=== PATIENT | female | born 1975 ===

== ENCOUNTER 2016-09-19 09:13 | Inpatient (IN) | payer OTHER ==
[2016-09-19] MEDS ORDERED: Sodium Chloride 0.9% 1,000 ML IV ONE (09:36)
[2016-09-19] MEDS ORDERED: Sodium Chloride 0.9% 1,000 ML ONE (09:45)
--- NOTE | 2016-09-19 09:50 | C.PDOC ---
History Of Present Illness 41 y/o female, whose PMHx includes hypertension and anemia, presents to the ED complaining of weakness and palpitations "for a while," worse for one day. She reports that her most recent menstrual period was "heavy," which is normal for her. Patient admits to history of blood transfusions, most recently over a year ago. Also notes Dr. Shankar is her PMD. Patient denies chest pain, shortness of breath, abdominal pain, vomiting, fever, chills, dizziness, headache, or other complaints. Time Seen by Provider: 09/19/16 09:23 Chief Complaint (Nursing): Flu-like Symptoms History Per: Patient History/Exam Limitations: no limitations Onset/Duration Of Symptoms: Days, Gradual, Persistent, Worse Since (1 day) Current Symptoms Are (Timing): Still Present Recent travel outside of the [place]: No Past Medical History Reviewed: Historical Data, Nursing Documentation, Vital Signs Vital Signs: Last Vital Signs Temp 99.2 F 09/19/16 09:17 Pulse 111 H 09/19/16 09:17 Resp 20 09/19/16 09:17 BP 156/90 H 09/19/16 09:17 Pulse Ox 100 09/19/16 11:04 - Medical History PMH: Anemia, HTN Surgical History: No Surg Hx - [facility] Procedures PACKED CELL TRANSFUSION (12/10/12) Family History: States: [place] (Mother had [place] in her 40's) - Social History Hx Tobacco Use: No Hx Alcohol Use: No Hx Substance Use: No - Immunization History Hx Tetanus Toxoid Vaccination: No Hx Influenza Vaccination: No Hx Pneumococcal Vaccination: No Review Of Systems Except As Marked, All Systems Reviewed And Found Negative. Constitutional: Positive for: Weakness. Negative for: Fever, Chills Cardiovascular: Positive for: Palpitations. Negative for: Chest Pain Respiratory: Negative for: Shortness of Breath Neurological: Negative for: Headache, Dizziness Physical Exam - Physical Exam Appears: Non-toxic, No Acute Distress Skin: Warm, Dry, Pale Head: Atraumatic, Normacephalic Eye(s): bilateral: Normal Inspection, PERRL Oral Mucosa: Dry Neck: Normal ROM, Supple Chest: Symmetrical Cardiovascular: Rhythm Regular, Other (mild tachycardia) Respiratory: Normal Breath Sounds, No Rales, No Rhonchi, No Wheezing Gastrointestinal/Abdominal: Normal Exam, Soft, No Tenderness Extremity: Normal ROM, No Swelling Neurological/Psych: Oriented x3, Normal Speech, Normal Cognition ED Course And Treatment - Laboratory Results Result Diagrams: 09/19/16 10:03 09/19/16 10:03 Lab Interpretation: Abnormal Urine POC: Negative ECG: Interpreted By Me ECG Rhythm: Sinus Tachycardia, Nonspecific Changes ECG Interpretation: No Acute Changes Rate From EC O2 Sat by Pulse Oximetry: 100 (ra) Pulse Ox Interpretation: Normal - Radiology CXR: Interpreted by Me CXR Interpretation: Yes: No Acute Disease - Other Rad Chest X-Ray X-Ray: Viewed By Me, Read By Radiologist Interpretation: Accession No. : [id number]. Patient Name / ID : SHAWANDA ACHARYA / [id number]. Exam Date : 09/19/2016 09:41:40 ( Approved ). Study Comment : Sex / Age : F / 41Y. Creator : Julianna Zaragoza MD. Dictator : Julianna Zaragoza MD. Ambulance Driver Paramedic : Director [employer] : Julianna Zaragoza MD. Approver2 : Report Date : 09/19/2016 10:15:35. My Comment : . HISTORY: SOB. COMPARISON: Chest x-ray performed 11/07/15. TECHNIQUE: Chest PA and lateral. FINDINGS: LUNGS: No focal consolidation. Please note that chest x-ray has limited sensitivity for the detection of pulmonary masses. PLEURA: No significant pleural effusion identified. No definite pneumothorax . CARDIOVASCULAR: The cardiomediastinal silhouette appears within normal limits of size. OSSEOUS STRUCTURES: No acute osseous abnormality identified. VISUALIZED UPPER ABDOMEN: Unremarkable. OTHER FINDINGS: None. IMPRESSION: No focal consolidation, significant pleural effusion, or definite pneumothorax identified. Progress Note: Treated with IVF NSS Reassessment Condition: Unchanged - Physician Consult Information Physician Contacted: Trae Ya Outcome Of Conversation: admit Medical Decision Making Medical Decision Making: Plan: * EKG * CXR * Labs * IV Fluids Disposition Discussed With Dr.: Trae Ya Doctor Will See Patient In The: Hospital - Disposition Disposition: HOSPITALIZED Disposition Time: 11:00 Condition: STABLE - POA Present On Arrival: None - Clinical Impression Clinical Impression: Palpitations, Anemia due to blood loss - PA / THREAD LASTER / Resident Statement MD/DO has reviewed & agrees with the documentation as recorded. - Scribe Statement The provider has reviewed the documentation as recorded by the Scribe (Joselin Levi) All medical record entries made by the Scribe were at my direction and personally dictated by me. I have reviewed the chart and agree that the record accurately reflects my personal performance of the history, physical exam, medical decision making, and the department course for this patient. I have also personally directed, reviewed, and agree with the discharge instructions and disposition. Decision To Admit - Pt Status Changed To: Hospital Disposition Of: Inpatient - Admit Certification Admit to Inpatient:: After my assessment, the patient will require hospitalization for at least two midnights. This is because of the severity of symptoms shown, intensity of services needed, and/or the medical risk in this patient being treated as an outpatient. - InPatient: Physician Admission Certification: I certify that this patient requires 2 or more midnights of care for the following reason:: symptomatic anemia - . Bed Request Type: Regular Admitting Physician: Trae Ya Patient Diagnosis: Palpitations, Anemia due to blood loss
[2016-09-19 10:10] LABS: BASO # 0.1 K/uL (0.0-0.2); BASO % 0.6 % (0.0-2.0); EOS # 0.2 K/uL (0.0-0.7); EOS % 0.8 % (0.0-4.0); HEMATOCRIT 25.3 % (34.0-47.0); LYMPH # 1.1 K/uL (1.0-4.3); LYMPH % 4.9 % (20.0-40.0); MEAN CORPUSCULAR HEMOGLOBIN 15.6 pg (27.0-31.0); MEAN CORPUSCULAR HGB CONC 27.9 g/dL (33.0-37.0); MONO # 1.5 K/uL (0.0-0.8); MONO % 6.7 % (0.0-10.0); NRBC % 0.1 % (0.0-2.0); PLATELET COUNT 332 K/uL (130-400); RED CELL DISTRIBUTION WIDTH 19.2 % (11.5-14.5)
--- NOTE | 2016-09-19 10:17 | RAD ---
HISTORY: SOB COMPARISON: Chest x-ray performed 11/07/15 TECHNIQUE: Chest PA and lateral FINDINGS: LUNGS: No focal consolidation. Please note that chest x-ray has limited sensitivity for the detection of pulmonary masses. PLEURA: No significant pleural effusion identified. No definite pneumothorax . CARDIOVASCULAR: The cardiomediastinal silhouette appears within normal limits of size. OSSEOUS STRUCTURES: No acute osseous abnormality identified. VISUALIZED UPPER ABDOMEN: Unremarkable. OTHER FINDINGS: None. IMPRESSION: No focal consolidation, significant pleural effusion, or definite pneumothorax identified.
[2016-09-19 10:18] LABS: CHLORIDE 98 mmol/L (98-107); MEAN CELL VOLUME 55.9 fL (81.0-99.0); WHITE BLOOD COUNT 22.5 K/uL (4.8-10.8)
[2016-09-19 10:19] LABS: POTASSIUM 3.5 mmol/L (3.6-5.2); SODIUM 135 mmol/L (132-148)
[2016-09-19 10:20] LABS: RBC URINE < 1 /hpf (0-3); URINE BACTERIA RARE (<OCC); URINE BILIRUBIN NEGATIVE (NEGATIVE); URINE BLOOD 1+ (NEGATIVE); URINE COLOR Yellow (YELLOW); URINE GLUCOSE (UA) NORMAL (Normal); URINE KETONE NEGATIVE (NEGATIVE); URINE LEUKOCYTE ESTERASE NEG Leu/uL (Negative); URINE PROTEIN NEGATIVE (NEGATIVE); URINE UROBILINOGEN NORMAL mg/dL (0.2-1.0); WBC URINE < 1 /hpf (0-5)
[2016-09-19 10:21] LABS: BILIRUBIN,TOTAL 0.6 mg/dL (0.2-1.3); CARBON DIOXIDE 25 mmol/L (22-30); GFR AFRICAN-AMERICAN > 60
[2016-09-19 10:22] LABS: ALB/GLOB RATIO 1.2 (1.0-2.1); ALKALINE PHOSPHATASE 40 U/L (38-126); ALT/SGPT 27 U/L (9-52); AST/SGOT 21 U/L (14-36); BLOOD UREA NITROGEN 11 mg/dL (7-17); CALCIUM 8.7 mg/dl (8.6-10.4); GLUCOSE,RANDOM 101 mg/dL (65-105); TOTAL PROTEIN 7.6 g/dL (6.3-8.3)
[2016-09-19 10:45] LABS: EOSINOPHIL 1 % (0-4); NEUTROPHIL 88 % (50-75); NUCLEATED RED BLOOD CELL 1 % (0-0); TOTAL CELLS COUNTED 100
--- NOTE | 2016-09-19 11:22 | CP.PCM.PN ---
Objective - Vital Signs/Intake and Output Vital Signs (last 24 hours): Temp Pulse Resp BP Pulse Ox 99.2 F 111 H 20 156/90 H 100 09/19/16 09:17 09/19/16 09:17 09/19/16 09:17 09/19/16 09:09/19/16 11:04 - Constitutional Appears: Non-toxic, No Acute Distress - Head Exam Head Exam: ATRAUMATIC, NORMAL INSPECTION - Eye Exam Eye Exam: EOMI, Normal appearance - ENT Exam ENT Exam: Mucous Membranes Moist - Neck Exam Neck Exam: Lymphadenopathy, Tenderness - Respiratory Exam Respiratory Exam: Clear to Ausculation Bilateral, NORMAL BREATHING PATTERN. absent: Wheezes - Cardiovascular Exam Cardiovascular Exam: Tachycardia, +S1, +S2. absent: JVD - GI/Abdominal Exam GI & Abdominal Exam: Soft, Normal Bowel Sounds. absent: Tenderness - Neurological Exam Neurological Exam: Alert, Awake, Oriented x3 - Psychiatric Exam Psychiatric exam: Normal Affect, Normal Mood - Skin Skin Exam: Dry, Intact, Normal Color, Warm
[2016-09-19] MEDS: Clindamycin 300 MG in Sodium Chloride 0.9% 50 ML IVPB SCH ×2 (13:50→22:19)
[2016-09-19] MEDS: Saccharomyces Boulardi 250 mg Cap PO SCH (14:33)
[2016-09-19] MEDS: metroNIDAZOLE IV 500 mg/100 ml 100 ML IVPB SCH ×2 (14:34→22:00)
[2016-09-19] MEDS: Sodium Chloride 0.9% 1,000 ML IV SCH (15:30)
--- NOTE | 2016-09-19 22:36 | CP.PCM.HP ---
<MalloryzeeTrae - Last Filed: 09/19/16 22:33> History of Present Illness - History of Present Illness History of Present Illness: CC: sore throat + weakness x 3days HPI: 41 y/o female with PMHx Menorrhagia, Anemia, and HTN - presents c/o weakness and sore throat for the past 3 days. She admits her child was recently sick and diagnosed with Strep throat this past Sunday 09/17. She has been caring for him, and began experiencing sore throat, difficulty swallowing, runny nose, and lethargy that same day. She also admits to a history of heavy menstruation, requiring a blood transfusion in 2012. Her garment parts cutter hand has evaluated her and prescribes an Iron 100 plus tab daily (Feosol), no other intervention required per patient. Patient also admits to mild palpitations last night which have since resolved. Patient denies f/c, chest pain, chest pressure, shortness of breath, abdominal pain, vomiting, dizziness, headache, or any additional complaints. PMHx: Menorrhagia, Anemia, and HTN PSHx: Laparoscopy 2008 (for ); x2 Meds: Iron 100 plus (Feosol) Allergies: NKDA FamHx: Mother had RI and in 40's; Father HTN alive and well. 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 absent: Chills, Fever - EENT Eyes: absent: Blind Spots, Blurred Vision, Change in Vision Nose/Mouth/Throat: Nasal Congestion, Nasal Discharge, Sore Throat, Other ( swollen tonsils (R>L)) - Cardiovascular Cardiovascular: Palpitations. absent: Chest Pain, Diaphoresis, Dyspnea, Edema, Leg Edema - Respiratory Respiratory: absent: Cough, Dyspnea, Hemoptysis - Gastrointestinal Gastrointestinal: absent: Abdominal Pain, Belching, Nausea, Vomiting - Genitourinary Genitourinary: absent: Change in Urinary Stream, Difficulty Urinating, Dysuria - Musculoskeletal Musculoskeletal: absent: Arthralgias, Numbness, Stiffness, Tingling - Integumentary Integumentary: absent: Acne, Alopecia, Bleeding Lesions - Neurological Neurological: Weakness. absent: Abnormal Gait, Abnormal Hearing, Abnormal Movements, Dizziness - Psychiatric Psychiatric: absent: Abnormal Sleep Pattern, Anhedonia, Anxiety - Endocrine Endocrine: absent: Change in Body Appearance, Polydipsia, Polyphagia, Polyuria - Hematologic/Lymphatic Hematologic: absent: Easy Bleeding, Easy Bruising Past Patient History - Past Social History Smoking Status: Never Smoked - CARDIAC Hx Hypertension: Yes - HEMATOLOGICAL/ONCOLOGICAL Hx Anemia: Yes - MUSCULOSKELETAL/RHEUMATOLOGICAL Hx Falls: No - PSYCHIATRIC Hx Substance Use: No - SURGICAL HISTORY Hx Section: Yes (2008 2009) - ANESTHESIA Hx Anesthesia: Yes Hx Anesthesia Reactions: No Meds Allergies/Adverse Reactions: Allergies Allergy/AdvReac Type Severity Reaction Status Date / Time No Known Allergies Allergy Verified 09/19/16 09:21 Physical Exam - Additional Findings Additional findings: - Constitutional Appears: Non-toxic, No Acute Distress - Head Exam Head Exam: ATRAUMATIC, NORMAL INSPECTION - Eye Exam Eye Exam: EOMI, Normal appearance - ENT Exam ENT Exam: Mucous Membranes Moist - Neck Exam Neck Exam: Lymphadenopathy, Tenderness - Respiratory Exam Respiratory Exam: Clear to Ausculation Bilateral, NORMAL BREATHING PATTERN. absent: Wheezes - Cardiovascular Exam Cardiovascular Exam: Tachycardia, +S1, +S2. absent: JVD - GI/Abdominal Exam GI & Abdominal Exam: Soft, Normal Bowel Sounds. absent: Tenderness - Neurological Exam Neurological Exam: Alert, Awake, Oriented x3 - Psychiatric Exam Psychiatric exam: Normal Affect, Normal Mood - Skin Skin Exam: Dry, Intact, Normal Color, Warm Results - Vital Signs Recent Vital Signs: Last Vital Signs Temp 99 F 09/19/16 16:54 Pulse 100 H 09/19/16 16:54 Resp 20 09/19/16 15:42 BP 130/68 09/19/16 16:54 Pulse Ox 97 09/19/16 15:42 - Labs Result Diagrams: 09/19/16 10:03 09/19/16 10:03 Labs: Laboratory Results - last 24 hr 09/19/16 11:53 Grp A Beta Strep Ag Negative Assessment & Plan - Assessment and Plan (Free Text) Assessment: Anemia 2/2 Menorrhagia Hx heavy periods Hg 7 on admission Type and cross Transfused 2u PRBCs (due to complete at 16:00) Resume home med - Feosol 325mg daily Tonsillitis Rapid strep test - Negative Flagyl 500mg IVPB Q8 [facility] Clindamycin 300mg IVPB Q8H Florastor 250 mg PO DAILY [facility] Positive UA f/u urine culture Flagyl 500mg IVPB Q8 MAYDA Florastor 250 mg PO DAILY [facility] Prophylaxis SCDs Heparin 5k SC q8 Pepcid 20mg PO daily NS 80cc/hr after transfusion - Date & Time Date: 09/19/16 Time: 11:15 <BhaktiPeter H - Last Filed: 09/20/16 11:23> Results - Vital Signs Recent Vital Signs: Last Vital Signs Temp 98.7 F 09/20/16 07:23 Pulse 88 09/20/16 11:16 Resp 20 09/20/16 07:23 BP 123/78 09/20/16 07:23 Pulse Ox 98 09/20/16 07:23 - Labs Result Diagrams: 09/20/16 07:01 09/20/16 07:01 Labs: Laboratory Results - last 24 hr 09/19/16 09/20/16 11:53 07:01 WBC 17.7 H RBC 4.54 Hgb 8.5 L Hct 28.1 L MCV 61.9 L D MCH 18.7 L MCHC 30.1 L RDW 27.1 H Plt Count 248 MPV 8.8 Neut % (Auto) 81.5 H Lymph % (Auto) 8.1 L [place] % (Auto) 8.0 Eos % (Auto) 2.0 Baso % (Auto) 0.4 Neut # 14.4 H Lymph # 1.4 [place] # 1.4 H Eos # 0.3 Baso # 0.1 Neutrophils % (Manual) 88 H Band Neutrophils % 2 Lymphocytes % (Manual) 2 L Monocytes % (Manual) 6 Eosinophils % (Manual) 2 Platelet Estimate Normal Polychromasia Slight Hypochromasia (manual) Moderate Anisocytosis (manual) Marked Microcytosis (manual) Moderate Target Cells Slight Ovalocytes Slight APTT 34 Sodium 138 Potassium 3.5 L Chloride 101 Carbon Dioxide 24 Anion Gap 17 BUN 7 Creatinine 0.5 L Est GFR ( Amer) > 60 Est GFR (Non-Af Amer) > 60 Random Glucose 83 Calcium 7.9 L Phosphorus 2.9 Magnesium 2.0 Total Bilirubin 0.6 AST 15 ALT 14 Alkaline Phosphatase 40 Total Protein 6.3 Albumin 3.3 L Globulin 3.0 Albumin/Globulin Ratio 1.1 Grp A Beta Strep Ag Negative Attending/Attestation - Attestation I have personally seen and examined this patient.: Yes I have fully participated in the care of the patient.: Yes I have reviewed all pertinent clinical information: Yes Notes (Text): 09/20/16 11:19 Medical Attending: Patient was seen and examined by me. Agree with the above note by the resident. The patient has a history of heavy menstrual bleeding and also a recent sore throat as well - per discussion with the patient she had a son who tested positive for strep throat. Will test for strep, start IV abx - she does have a rather large WBC count and reports fever sensation. The patient also is anemia as well - she explains there is a history of this, she does have heavy periods thank you Trae Ya
[2016-09-19 23:36] VITALS: RESP 20
[2016-09-20] MEDS ORDERED: Promethazine DM 6.25 mg-15 mg/5 ml Syrup PO STA (01:59)
[2016-09-20] MEDS ORDERED: Albuterol-Ipratrop 3 mg / 0.5 (3 ml) UD INH STA ×2 (01:59→03:20)
[2016-09-20] MEDS: Sodium Chloride 0.9% 1,000 ML IV SCH ×2 (04:00→16:30)
[2016-09-20] MEDS: Clindamycin 300 MG in Sodium Chloride 0.9% 50 ML IVPB SCH ×3 (05:00→21:42)
[2016-09-20] MEDS: metroNIDAZOLE IV 500 mg/100 ml 100 ML IVPB SCH ×3 (05:35→21:37)
[2016-09-20 07:27] LABS: CHLORIDE 101 mmol/L (98-107)
[2016-09-20 07:28] LABS: POTASSIUM 3.5 mmol/L (3.6-5.2); SODIUM 138 mmol/L (132-148)
[2016-09-20 07:30] LABS: GFR AFRICAN-AMERICAN > 60
[2016-09-20 07:31] LABS: ALB/GLOB RATIO 1.1 (1.0-2.1); ALKALINE PHOSPHATASE 40 U/L (38-126); ALT/SGPT 14 U/L (9-52); AST/SGOT 15 U/L (14-36); BILIRUBIN,TOTAL 0.6 mg/dL (0.2-1.3); BLOOD UREA NITROGEN 7 mg/dL (7-17); CARBON DIOXIDE 24 mmol/L (22-30); GLUCOSE,RANDOM 83 mg/dL (65-105); PHOSPHOROUS 2.9 mg/dL (2.5-4.5); TOTAL PROTEIN 6.3 g/dL (6.3-8.3)
[2016-09-20 07:32] LABS: CALCIUM 7.9 mg/dl (8.6-10.4)
[2016-09-20 07:36] LABS: BASO # 0.1 K/uL (0.0-0.2); BASO % 0.4 % (0.0-2.0); EOS # 0.3 K/uL (0.0-0.7); HEMATOCRIT 28.1 % (34.0-47.0); LYMPH # 1.4 K/uL (1.0-4.3); LYMPH % 8.1 % (20.0-40.0); MEAN CORPUSCULAR HEMOGLOBIN 18.7 pg (27.0-31.0); MEAN CORPUSCULAR HGB CONC 30.1 g/dL (33.0-37.0); MEAN PLATELET VOLUME 8.8 fL (7.2-11.7); MONO # 1.4 K/uL (0.0-0.8); NRBC % 0.2 % (0.0-2.0); PLATELET COUNT 248 K/uL (130-400); RED CELL DISTRIBUTION WIDTH 27.1 % (11.5-14.5); WHITE BLOOD COUNT 17.7 K/uL (4.8-10.8)
[2016-09-20 07:44] LABS: MEAN CELL VOLUME 61.9 fL (81.0-99.0)
[2016-09-20] MEDS ORDERED: Potassium Chloride 20 mEq ER Tab PO ONE (08:46)
[2016-09-20 09:03] LABS: EOSINOPHIL 2 % (0-4); NEUTROPHIL 88 % (50-75); TOTAL CELLS COUNTED 100
[2016-09-20] MEDS: Saccharomyces Boulardi 250 mg Cap PO SCH (09:14)
[2016-09-20] MEDS ORDERED: Pneumococcal 23-Valent Vaccine IM ONE (10:00)
[2016-09-20] MEDS ORDERED: Influenza Virus Vaccine 45 mcg/0.5 ml Syr IM ONE (10:00)
--- NOTE | 2016-09-20 10:23 | CP.PCM.PN ---
<Omi Woo - Last Filed: 09/20/16 14:25> Subjective - Date & Time of Evaluation Date of Evaluation: 09/20/16 Time of Evaluation: 10:21 - Subjective Subjective: PGY-1 note for medicine service Pt seen and examined at bedside. Pt states that she feels stronger today after receiving 2 units of PRBCs. She does state that her throat feels worse today. There is no pain with swallowing but it hurts to palpation. Denies any fevers, chills, drooling, chest pain, sob, nausea or vomiting. Objective - Vital Signs/Intake and Output Vital Signs (last 24 hours): Temp Pulse Resp BP Pulse Ox 98.7 F 88 20 123/78 98 09/20/16 07:23 09/20/16 07:23 09/20/16 07:23 09/20/16 07:23 09/20/16 07:23 Intake and Output: 09/20/16 09/20/16 06:59 18:59 Intake Total 2365 Balance 2365 - Medications Medications: Current Medications Famotidine (Pepcid) 20 mg PO DAILY [facility] Last Admin: 09/20/16 09:14 Dose: 20 mg Ferrous Sulfate (Feosol) 325 mg PO DAILY [facility] Last Admin: 09/20/16 09:14 Dose: 325 mg Heparin Sodium (Porcine) (Heparin) 5,000 units SC Q8 [facility] Last Admin: 09/20/16 05:34 Dose: 5,000 units Metronidazole (Flagyl) 100 mls @ 100 mls/hr IVPB Q8 [facility] Last Admin: 09/20/16 05:35 Dose: 100 mls/hr Sodium Chloride (Sodium Chloride 0.9%) 1,000 mls @ 80 mls/hr IV .[id number] [facility] Last Admin: 09/20/16 04:00 Dose: Not Given Clindamycin Phosphate 300 mg/ (Sodium Chloride) 52 mls @ 100 mls/hr IVPB Q8 [facility] Last Admin: 09/20/16 05:00 Dose: 100 mls/hr Influenza Virus Vaccine (Afluria) 45 mcg IM .ONCE ONE Stop: 09/23/16 10:01 Saccharomyces Boulardii (Florastor) 250 mg PO DAILY [facility] Last Admin: 09/20/16 09:14 Dose: 250 mg - Labs Labs: 09/20/16 07:01 09/20/16 07:01 APTT 34 SECONDS (21-34) 09/20/16 07:01 - Constitutional Appears: Non-toxic, No Acute Distress - Head Exam Head Exam: ATRAUMATIC, NORMOCEPHALIC - Eye Exam Eye Exam: Normal appearance Pupil Exam: PERRL - Neck Exam Neck Exam: Normal Inspection, Tenderness (Submandibularly). absent: Lymphadenopathy - Respiratory Exam Respiratory Exam: Clear to Ausculation Bilateral, NORMAL BREATHING PATTERN - Cardiovascular Exam Cardiovascular Exam: +S1, +S2 - GI/Abdominal Exam GI & Abdominal Exam: Soft, Normal Bowel Sounds - Neurological Exam Neurological Exam: Alert, Awake - Skin Skin Exam: Dry, Warm Assessment and Plan - Assessment and Plan (Free Text) Assessment: Anemia 2/2 Menorrhagia - Symptomatically improved this morning - Hx heavy periods, followed by occasional babysitter - Hg 7 on admission - Transfused 2u PRBCs - Hgb 8.5 on Am labs - Resume home med - Feosol 325mg daily Tonsillitis - Rapid strep test - Negative - Throat swab culture - no growth, final - Flagyl 500mg IVPB Q8 [facility] - Clindamycin 300mg IVPB Q8H - Florastor 250 mg PO DAILY [facility] - Blood cx (09/19) - f/u Prophylaxis - SCDs - Heparin 5k SC q8 - Pepcid 20mg PO daily - NS 80cc/hr after transfusion <Trae Ya H - Last Filed: 09/20/16 15:27> Objective - Vital Signs/Intake and Output Vital Signs (last 24 hours): Temp Pulse Resp BP Pulse Ox 98.7 F 88 20 123/78 98 09/20/16 07:23 09/20/16 11:16 09/20/16 07:23 09/20/16 07:23 09/20/16 07:23 Intake and Output: 09/20/16 09/20/16 06:59 18:59 Intake Total 2365 880 Balance 2365 880 - Medications Medications: Current Medications Albuterol/Ipratropium (Duoneb 3 Mg/0.5 Mg (3 Ml) Ud) 3 ml INH RQ4 PRN PRN Reason: Shortness of Breath Famotidine (Pepcid) 20 mg PO DAILY [facility] Last Admin: 09/20/16 09:14 Dose: 20 mg Ferrous Sulfate (Feosol) 325 mg PO DAILY [facility] Last Admin: 09/20/16 09:14 Dose: 325 mg Heparin Sodium (Porcine) (Heparin) 5,000 units SC Q8 [facility] Last Admin: 09/20/16 13:14 Dose: 5,000 units Metronidazole (Flagyl) 100 mls @ 100 mls/hr IVPB Q8 [facility] Last Admin: 09/20/16 13:14 Dose: 100 mls/hr Sodium Chloride (Sodium Chloride 0.9%) 1,000 mls @ 80 mls/hr IV .[id number] [facility] Last Admin: 09/20/16 04:00 Dose: Not Given Clindamycin Phosphate 300 mg/ (Sodium Chloride) 52 mls @ 100 mls/hr IVPB Q8 [facility] Last Admin: 09/20/16 13:14 Dose: 100 mls/hr Influenza Virus Vaccine (Afluria) 45 mcg IM .ONCE ONE Stop: 09/23/16 10:01 Saccharomyces Boulardii (Florastor) 250 mg PO DAILY [facility] Last Admin: 09/20/16 09:14 Dose: 250 mg - Labs Labs: 09/20/16 07:01 09/20/16 07:01 APTT 34 SECONDS (21-34) 09/20/16 07:01 Attending/Attestation - Attestation I have personally seen and examined this patient.: Yes I have fully participated in the care of the patient.: Yes I have reviewed all pertinent clinical information, including history, physical exam and plan: Yes Notes (Text): 09/20/16 15:26 Medical attending: Patient was seen and examined by me, agrees the above note by faculty i on call medical assistant The patient explains to us that she does not feel tired anymore, as mentioned above the resident note the patient has received PRBCs The white blood cell count has improved it's lower today however it still relatively elevated. She remains on IV into biotics at this time. I explained to her that if the white blood cell count continues to decline we'll consider discharging the patient tomorrow Thank you very much, Trae Ya
--- NOTE | 2016-09-20 11:51 | CARD ---
APPROVED REPORT EKG Measurement Heart [id number] <Conclusion> Sinus tachycardia Nonspecific T wave abnormality Abnormal ECG
[2016-09-21] MEDS: Albuterol-Ipratrop 3 mg / 0.5 (3 ml) UD INH PRN ×2 (03:42→08:48)
[2016-09-21] MEDS: Clindamycin 300 MG in Sodium Chloride 0.9% 50 ML IVPB SCH (05:07)
[2016-09-21] MEDS: metroNIDAZOLE IV 500 mg/100 ml 100 ML IVPB SCH (05:08)
[2016-09-21] MEDS: Sodium Chloride 0.9% 1,000 ML IV SCH (05:09)
[2016-09-21 07:37] VITALS: BP 145/88; PULSE 69; TEMP 97.8; O2SAT 98
--- NOTE | 2016-09-21 09:51 | CP.PCM.DIS ---
<Omi Woo - Last Filed: 09/21/16 12:35> Provider - Provider Date of Admission: 09/19/16 10:59 Attending physician: Trae Ya DO Time Spent in preparation of Discharge (in minutes): 31 Hospital Course - Lab Results Lab Results: Micro Results 09/19/16 11:40 Blood-Venous Blood Culture - Preliminary NO GROWTH AFTER 24 HOURS 09/19/16 11:10 Blood-Venous Blood Culture - Preliminary NO GROWTH AFTER 24 HOURS 09/19/16 11:53 Throat Group A Strep Throat Culture - Final NO BETA STREP GROUP A ISOLATED. Most Recent Lab Values WBC 17.7 K/uL (4.8-10.8) H 09/20/16 07:01 RBC 4.54 Mil/uL (3.80-5.20) 09/20/16 07:01 Hgb 8.5 g/dL (11.0-16.0) L 09/20/16 07:01 Hct 28.1 % (34.0-47.0) L 09/20/16 07:01 MCV 61.9 fL (81.0-99.0) L D 09/20/16 07:01 MCH 18.7 pg (27.0-31.0) L 09/20/16 07:01 MCHC 30.1 g/dL (33.0-37.0) L 09/20/16 07:01 RDW 27.1 % (11.5-14.5) H 09/20/16 07:01 Plt Count 248 K/uL (130-400) 09/20/16 07:01 MPV 8.8 fL (7.2-11.7) 09/20/16 07:01 Neut % (Auto) 81.5 % (50.0-75.0) H 09/20/16 07:01 Lymph % (Auto) 8.1 % (20.0-40.0) L 09/20/16 07:01 [place] % (Auto) 8.0 % (0.0-10.0) 09/20/16 07:01 Eos % (Auto) 2.0 % (0.0-4.0) 09/20/16 07:01 Baso % (Auto) 0.4 % (0.0-2.0) 09/20/16 07:01 Neut # 14.4 K/uL (1.8-7.0) H 09/20/16 07:01 Lymph # 1.4 K/uL (1.0-4.3) 09/20/16 07:01 [place] # 1.4 K/uL (0.0-0.8) H 09/20/16 07:01 Eos # 0.3 K/uL (0.0-0.7) 09/20/16 07:01 Baso # 0.1 K/uL (0.0-0.2) 09/20/16 07:01 Neutrophils % (Manual) 88 % (50-75) H 09/20/16 07:01 Band Neutrophils % 2 % (0-2) 09/20/16 07:01 Lymphocytes % (Manual) 2 % (20-40) L 09/20/16 07:01 Monocytes % (Manual) 6 % (0-10) 09/20/16 07:01 Eosinophils % (Manual) 2 % (0-4) 09/20/16 07:01 Nucleated RBC % 1 % (0-0) H 09/19/16 10:03 Platelet Estimate Normal (NORMAL) 09/20/16 07:01 Polychromasia Slight 09/20/16 07:01 Hypochromasia (manual) Moderate 09/20/16 07:01 Poikilocytosis (manual Slight 09/19/16 10:03 Anisocytosis (manual) Marked 09/20/16 07:01 Microcytosis (manual) Moderate 09/20/16 07:01 Target Cells Slight 09/20/16 07:01 Ovalocytes Slight 09/20/16 07:01 APTT 34 SECONDS (21-34) 09/20/16 07:01 Sodium 138 mmol/L (132-148) 09/20/16 07:01 Potassium 3.5 mmol/L (3.6-5.2) L 09/20/16 07:01 Chloride 101 mmol/L (98-107) 09/20/16 07:01 Carbon Dioxide 24 mmol/L (22-30) 09/20/16 07:01 Anion Gap 17 (10-20) 09/20/16 07:01 BUN 7 mg/dL (7-17) 09/20/16 07:01 Creatinine 0.5 MG/DL (0.7-1.2) L 09/20/16 07:01 Est GFR ( Amer) > 60 09/20/16 07:01 Est GFR (Non-Af Amer) > 60 09/20/16 07:01 Random Glucose 83 mg/dL (65-105) 09/20/16 07:01 Calcium 7.9 mg/dl (8.6-10.4) L 09/20/16 07:01 Phosphorus 2.9 mg/dL (2.5-4.5) 09/20/16 07:01 Magnesium 2.0 mg/dL (1.6-2.3) 09/20/16 07:01 Total Bilirubin 0.6 mg/dL (0.2-1.3) 09/20/16 07:01 AST 15 U/L (14-36) 09/20/16 07:01 ALT 14 U/L (9-52) 09/20/16 07:01 Alkaline Phosphatase 40 U/L (38-126) 09/20/16 07:01 Troponin I < 0.0120 ng/mL (0.00-0.120) 09/19/16 10:03 Total Protein 6.3 g/dL (6.3-8.3) 09/20/16 07:01 Albumin 3.3 g/dL (3.5-5.0) L 09/20/16 07:01 Globulin 3.0 gm/dL (2.2-3.9) 09/20/16 07:01 Albumin/Globulin Ratio 1.1 (1.0-2.1) 09/20/16 07:01 Urine Color Yellow (YELLOW) 09/19/16 10:03 Urine Clarity Hazy (Clear) 09/19/16 10:03 Urine pH 6.0 (5.0-8.0) 09/19/16 10:03 Ur Specific [place] 1.008 (1.003-1.030) 09/19/16 10:03 Urine Protein Negative mg/dL (NEGATIVE) 09/19/16 10:03 Urine Glucose (UA) Normal mg/dL (Normal) 09/19/16 10:03 Urine Ketones Negative mg/dL (NEGATIVE) 09/19/16 10:03 Urine Blood 1+ (NEGATIVE) H 09/19/16 10:03 Urine Nitrate Negative (NEGATIVE) 09/19/16 10:03 Urine Bilirubin Negative (NEGATIVE) 09/19/16 10:03 Urine Urobilinogen Normal mg/dL (0.2-1.0) 09/19/16 10:03 Ur Leukocyte Esterase Neg [place]/uL (Negative) 09/19/16 10:03 Urine WBC (Auto) < 1 /hpf (0-5) 09/19/16 10:03 Urine RBC (Auto) < 1 /hpf (0-3) 09/19/16 10:03 Ur Squamous Epith Cells 11 /hpf (0-5) H 09/19/16 10:03 Urine Bacteria Rare (<OCC) 09/19/16 10:03 Urine HCG, Qual Negative (NEGATIVE) 09/19/16 10:03 Grp A Beta Strep Ag Negative (NEGATIVE) 09/19/16 11:53 Blood Type AB POSITIVE 09/19/16 10:03 Antibody Screen Negative 09/19/16 10:03 - Hospital Course Hospital Course: On hospital admission 41 y/o female with PMHx Menorrhagia, Anemia, and HTN - presents c/o weakness and sore throat for the past 3 days. She admits her child was recently sick and diagnosed with Strep throat this past Sunday 09/17. She has been caring for him, and began experiencing sore throat, difficulty swallowing, runny nose, and lethargy that same day. She also admits to a history of heavy menstruation, requiring a blood transfusion in 2012. Her cake froster has evaluated her and prescribes an Iron 100 plus tab daily (Feosol), no other intervention required per patient. Patient also admits to mild palpitations last night which have since resolved. Patient denies f/c, chest pain, chest pressure, shortness of breath, abdominal pain, vomiting, dizziness, headache, or any additional complaints. On hospital course Pt was admitted after being found to be anemic with a Hgb of 7.0. She was transfused 2 units of PRBCs and started on antibiotics for her tonsillitis. Throat cultures were obtained and pt was observed overnight. The following day, the pt felt stronger overall but her throat felt worse. Pt's leukocystosis persisted so the pt was kept one more night. The following morning the pt felt better symptomatically and was discharged in stable condition with the following new medications: Amoxicillin/Clavulanate [Augmentin 875 MG-125 MG] 1 tab PO BID #10 tab Pt was instructed to follow up with her primary care and labor operator within the next couple of weeks. She was also instructed to return to the hospital with any new or worsening symptoms. 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 Tonsillitis - Date & Time of H&P Date of H&P: 09/19/16 Time of H&P: 11:15 Discharge Exam - Head Exam Head Exam: ATRAUMATIC, NORMOCEPHALIC - Eye Exam Eye Exam: Normal appearance Pupil Exam: PERRL - ENT Exam ENT Exam: Mucous Membranes Moist Additional comments: Slightly erythematous oropharynx - Neck Exam Neck exam: Normal Inspection - Respiratory Exam Respiratory Exam: Clear to PA & Lateral, UNREMARKABLE - Cardiovascular Exam Cardiovascular Exam: +S1, +S2 - GI/Abdominal Exam GI & Abdominal Exam: Normal Bowel Sounds, Unremarkable - Neurological Exam Neurological exam: Alert, Oriented x3 - Skin Skin Exam: Dry, Warm Discharge Plan - Discharge Medications Prescriptions: Amoxicillin/Clavulanate [Augmentin 875 MG-125 MG] 1 tab PO BID #10 tab - Follow Up Plan Condition: STABLE Disposition: HOME/ ROUTINE Instructions: Amoxicillin/Clavulanate Potassium (By mouth), Anemia (DC) Additional Instructions: You are medically stable for discharge. Please follow up with your primary care physician within the next week. You are being discharged with antibiotics, continue to take them till completion, as directed, even if symptoms resolve. Also, take the medication with meals. Take tylenol for any fevers and return to the hospital with any new concerning symptoms. New medication Augmentin 875-125 1 tab, twice a day Referrals: Kia Mcbride MD [Staff Provider] - <Trae Ya - Last Filed: 09/21/16 15:03> Provider - Provider Date of Admission: 09/19/16 10:59 Attending physician: Trae Ya DO Hospital Course - Lab Results Lab Results: Micro Results 09/19/16 11:40 Blood-Venous Blood Culture - Preliminary NO GROWTH AFTER 24 HOURS 09/19/16 11:10 Blood-Venous Blood Culture - Preliminary NO GROWTH AFTER 24 HOURS 09/19/16 11:53 Throat Group A Strep Throat Culture - Final NO BETA STREP GROUP A ISOLATED. Most Recent Lab Values WBC 8.3 K/uL (4.8-10.8) D 09/21/16 10:17 RBC 4.31 Mil/uL (3.80-5.20) 09/21/16 10:17 Hgb 7.9 g/dL (11.0-16.0) L 09/21/16 10:17 Hct 26.8 % (34.0-47.0) L 09/21/16 10:17 MCV 62.2 fL (81.0-99.0) L 09/21/16 10:17 MCH 18.3 pg (27.0-31.0) L 09/21/16 10:17 MCHC 29.4 g/dL (33.0-37.0) L 09/21/16 10:17 RDW 27.1 % (11.5-14.5) H 09/21/16 10:17 Plt Count 244 K/uL (130-400) 09/21/16 10:17 MPV 9.3 fL (7.2-11.7) 09/21/16 10:17 Neut % (Auto) 74.1 % (50.0-75.0) 09/21/16 10:17 Lymph % (Auto) 12.5 % (20.0-40.0) L 09/21/16 10:17 [place] % (Auto) 8.9 % (0.0-10.0) 09/21/16 10:17 Eos % (Auto) 4.1 % (0.0-4.0) H 09/21/16 10:17 Baso % (Auto) 0.4 % (0.0-2.0) 09/21/16 10:17 Neut # 6.1 K/uL (1.8-7.0) 09/21/16 10:17 Lymph # 1.0 K/uL (1.0-4.3) 09/21/16 10:17 [place] # 0.7 K/uL (0.0-0.8) 09/21/16 10:17 Eos # 0.3 K/uL (0.0-0.7) 09/21/16 10:17 Baso # 0.0 K/uL (0.0-0.2) 09/21/16 10:17 Neutrophils % (Manual) 88 % (50-75) H 09/20/16 07:01 Band Neutrophils % 2 % (0-2) 09/20/16 07:01 Lymphocytes % (Manual) 2 % (20-40) L 09/20/16 07:01 Monocytes % (Manual) 6 % (0-10) 09/20/16 07:01 Eosinophils % (Manual) 2 % (0-4) 09/20/16 07:01 Nucleated RBC % 1 % (0-0) H 09/19/16 10:03 Platelet Estimate Normal (NORMAL) 09/20/16 07:01 Polychromasia Slight 09/20/16 07:01 Hypochromasia (manual) Moderate 09/20/16 07:01 Poikilocytosis (manual Slight 09/19/16 10:03 Anisocytosis (manual) Marked 09/20/16 07:01 Microcytosis (manual) Moderate 09/20/16 07:01 Target Cells Slight 09/20/16 07:01 Ovalocytes Slight 09/20/16 07:01 APTT 34 SECONDS (21-34) 09/20/16 07:01 Sodium 138 mmol/L (132-148) 09/21/16 10:17 Potassium 3.1 mmol/L (3.6-5.2) L 09/21/16 10:17 Chloride 106 mmol/L (98-107) 09/21/16 10:17 Carbon Dioxide 19 mmol/L (22-30) L 09/21/16 10:17 Anion Gap 16 (10-20) 09/21/16 10:17 BUN 3 mg/dL (7-17) L 09/21/16 10:17 Creatinine 0.4 MG/DL (0.7-1.2) L 09/21/16 10:17 Est GFR ( Amer) > 60 09/21/16 10:17 Est GFR (Non-Af Amer) > 60 09/21/16 10:17 Random Glucose 55 mg/dL (65-105) L 09/21/16 10:17 Calcium 6.9 mg/dl (8.6-10.4) L 09/21/16 10:17 Phosphorus 2.9 mg/dL (2.5-4.5) 09/21/16 10:17 Magnesium 1.6 mg/dL (1.6-2.3) 09/21/16 10:17 Total Bilirubin 0.2 mg/dL (0.2-1.3) 09/21/16 10:17 AST 12 U/L (14-36) L 09/21/16 10:17 ALT 13 U/L (9-52) 09/21/16 10:17 Alkaline Phosphatase 38 U/L (38-126) 09/21/16 10:17 Troponin I < 0.0120 ng/mL (0.00-0.120) 09/19/16 10:03 Total Protein 5.8 g/dL (6.3-8.3) L 09/21/16 10:17 Albumin 2.9 g/dL (3.5-5.0) L 09/21/16 10:17 Globulin 2.9 gm/dL (2.2-3.9) 09/21/16 10:17 Albumin/Globulin Ratio 1.0 (1.0-2.1) 09/21/16 10:17 Urine Color Yellow (YELLOW) 09/19/16 10:03 Urine Clarity Hazy (Clear) 09/19/16 10:03 Urine pH 6.0 (5.0-8.0) 09/19/16 10:03 Ur Specific [place] 1.008 (1.003-1.030) 09/19/16 10:03 Urine Protein Negative mg/dL (NEGATIVE) 09/19/16 10:03 Urine Glucose (UA) Normal mg/dL (Normal) 09/19/16 10:03 Urine Ketones Negative mg/dL (NEGATIVE) 09/19/16 10:03 Urine Blood 1+ (NEGATIVE) H 09/19/16 10:03 Urine Nitrate Negative (NEGATIVE) 09/19/16 10:03 Urine Bilirubin Negative (NEGATIVE) 09/19/16 10:03 Urine Urobilinogen Normal mg/dL (0.2-1.0) 09/19/16 10:03 Ur Leukocyte Esterase Neg [place]/uL (Negative) 09/19/16 10:03 Urine WBC (Auto) < 1 /hpf (0-5) 09/19/16 10:03 Urine RBC (Auto) < 1 /hpf (0-3) 09/19/16 10:03 Ur Squamous Epith Cells 11 /hpf (0-5) H 09/19/16 10:03 Urine Bacteria Rare (<OCC) 09/19/16 10:03 Urine HCG, Qual Negative (NEGATIVE) 09/21/16 10:09 Grp A Beta Strep Ag Negative (NEGATIVE) 09/19/16 11:53 Blood Type AB POSITIVE 09/19/16 10:03 Antibody Screen Negative 09/19/16 10:03 Attending/Attestation - Attestation I have personally seen and examined this patient.: Yes I have fully participated in the care of the patient.: Yes I have reviewed all pertinent clinical information, including history, physical exam and plan: Yes Notes (Text): Medical Attending: Patient was seen and examined by me, agrees the above note by medical technologist microbiology. As mentioned before the patient had blood transfusions, she initially came in with a chief complaint of weakness tired and fatigued. Very likely this is due to heavy menstrual bleeding the patient explained that this is not different from before its just that she is anemic and she has heavy menstrual bleeding. She is not bleeding at this time She also come in with sore throat and elevated white blood cell count, she explains that she had a son who was diagnosed with [place] strep is positive. We also did a rapid strep on the patient this was negative. Nevertheless on physical exam she did have some tenderness on her right submandibular area. On inspection of the pharynx she did have large tonsils particularly on the right side that was very red so we gave her IV and antibiotics and she'll be discharged home with by mouth antibiotics as well. thank you Trae Ya
[2016-09-21 10:26] LABS: BASO % 0.4 % (0.0-2.0); EOS # 0.3 K/uL (0.0-0.7); EOS % 4.1 % (0.0-4.0); HEMATOCRIT 26.8 % (34.0-47.0); LYMPH % 12.5 % (20.0-40.0); MEAN CELL VOLUME 62.2 fL (81.0-99.0); MEAN CORPUSCULAR HEMOGLOBIN 18.3 pg (27.0-31.0); MEAN CORPUSCULAR HGB CONC 29.4 g/dL (33.0-37.0); MEAN PLATELET VOLUME 9.3 fL (7.2-11.7); MONO # 0.7 K/uL (0.0-0.8); MONO % 8.9 % (0.0-10.0); NRBC % 0.1 % (0.0-2.0); RED CELL DISTRIBUTION WIDTH 27.1 % (11.5-14.5)
[2016-09-21 10:37] LABS: CHLORIDE 106 mmol/L (98-107); POTASSIUM 3.1 mmol/L (3.6-5.2); SODIUM 138 mmol/L (132-148); WHITE BLOOD COUNT 8.3 K/uL (4.8-10.8)
[2016-09-21 10:39] LABS: ALKALINE PHOSPHATASE 38 U/L (38-126); AST/SGOT 12 U/L (14-36); BILIRUBIN,TOTAL 0.2 mg/dL (0.2-1.3); CARBON DIOXIDE 19 mmol/L (22-30); GFR AFRICAN-AMERICAN > 60; TOTAL PROTEIN 5.8 g/dL (6.3-8.3)
[2016-09-21 10:40] LABS: ALT/SGPT 13 U/L (9-52); BLOOD UREA NITROGEN 3 mg/dL (7-17); CALCIUM 6.9 mg/dl (8.6-10.4); GLUCOSE,RANDOM 55 mg/dL (65-105); MAGNESIUM 1.6 mg/dL (1.6-2.3); PHOSPHOROUS 2.9 mg/dL (2.5-4.5)
[2016-09-21] MEDS: Saccharomyces Boulardi 250 mg Cap PO SCH (10:59)
[2016-09-21] MEDS ORDERED: Influenza Virus Vaccine 45 mcg/0.5 ml Syr IM ONE (11:45)
[2016-09-23] MEDS ORDERED: Influenza Virus Vaccine 45 mcg/0.5 ml Syr IM ONE (10:00)
== END 2016-09-21 12:20 | disposition home or self-care (01) | DRG 812 ==
LOC: C.ER 09:13 → C.9E 10:59 → C.3T 12:46
PROVIDERS: ADMIT Hospitalist; ATTEND Hospitalist
PROC: 30233N1 Transfusion of Nonautologous Red Blood Cells into Peripheral Vein, Percutaneous Approach (ICD-10-PCS; principal; 2016-09-19)
DX: D50.0 Iron deficiency anemia secondary to blood loss (chronic) (principal); N39.0 Urinary tract infection, site not specified; I10 Essential (primary) hypertension; J03.90 Acute tonsillitis, unspecified; N92.0 Excessive and frequent menstruation with regular cycle

== ENCOUNTER 2016-10-26 09:54 | Emergency (ER) | payer OTHER ==
[2016-10-26 10:58] VITALS: TEMP 98.8
--- NOTE | 2016-10-26 11:15 | C.PDOC ---
History Of Present Illness 41-year-old female, PMHx includes Anemia, presents to the emergency department with complaints of five-day duration of pain and heaviness in right shoulder w/ tingling in right arm. Patient notes that lifting arm (vertically), and squeezing it, helps relieve symptoms. Patient denies visual changes, headache, dizziness, or any other associated symptoms. No other complaints at this time. Chief Complaint (Nursing): Upper Extremity Problem/Injury History Per: Patient History/Exam Limitations: no limitations Past Medical History Reviewed: Historical Data, Nursing Documentation, Vital Signs Vital Signs: Last Vital Signs Temp 98.8 F 10/26/16 10:30 Pulse 81 10/26/16 14:29 Resp 16 10/26/16 14:29 BP 172/90 H 10/26/16 14:29 Pulse Ox 100 10/26/16 14:29 - Medical History PMH: Anemia, HTN - [facility] Procedures PACKED CELL TRANSFUSION (12/10/12) TRANSFUSE NONAUT RED BLOOD CELLS IN PERIPH VEIN, PERC (09/19/16) Family History: States: Unknown Family Hx, [place] (Mother had [place] in her 40's) - Social History Hx Tobacco Use: No Hx Alcohol Use: No Hx Substance Use: No - Immunization History Hx Tetanus Toxoid Vaccination: Yes Hx Influenza Vaccination: Yes Hx Pneumococcal Vaccination: No Review Of Systems Except As Marked, All Systems Reviewed And Found Negative. Constitutional: Negative for: Fever, Chills Cardiovascular: Negative for: Chest Pain Gastrointestinal: Negative for: Vomiting Musculoskeletal: Positive for: Neck Pain, Shoulder Pain Skin: Negative for: Rash Physical Exam - Physical Exam Appears: Non-toxic, No Acute Distress Skin: Warm, Dry, No Rash Head: Atraumatic, Normacephalic Eye(s): bilateral: Normal Inspection, PERRL Nose: Normal Oral Mucosa: Moist Lips: Normal Appearing Neck: Normal ROM, Paracervical Tenderness Respiratory: No Accessory Muscle Use Extremity: Tenderness (DIFFUSE, RIGHT SHOULDER TENDERNESS) Neurological/Psych: Oriented x3, Normal Speech, Normal Cognition, Other (No focal neuro deficit) ED Course And Treatment O2 Sat by Pulse Oximetry: 99 - Other Rad C-spine xray X-Ray: Viewed By Me, Read By Radiologist Interpretation: Accession No. : [id number]. Patient Name / ID : SHAWANDA Peterson / [id number]. Exam Date : 10/26/2016 12:05:20 ( Approved ). Study Comment : Sex / Age : F / 41Y. Creator : LIGIA BRUNO. Dictator : Trae Wolfe MD. Nib Inspector : Mower Operator : Trae Wolfe MD. Approver2 : Report Date : 10/26/2016 12:15:36. My Comment : . PROCEDURE: Cervical Spine Radiographs. HISTORY: Pain. COMPARISON: None. FINDINGS: BONES: The vertebral bodies are maintained in height. The transverse processes and posterior elements appear intact. Evaluation of the odontoid process atlantoaxial articulation is grossly normal though suboptimally evaluated. The odontoid process is intact. DISC SPACES: Disc spaces are preserved in height. Spondylotic changes are noted at C4-5 and C5-6. SOFT TISSUES: Normal. No prevertebral soft tissue swelling. OTHER FINDINGS: None. IMPRESSION: No evidence of fracture or degenerative disc disease. Shoulder Xray X-Ray: Viewed By Me, Read By Radiologist Interpretation: Accession No. : [id number]. Patient Name / ID : SHAWANDA Peterson / [id number]. Exam Date : 10/26/2016 12:05:29 ( Approved ). Study Comment : Sex / Age : F / 41Y. Creator : LIGIA BRUNO. Dictator : Trae Wolfe MD. Nib Inspector : Mower Operator : Trae Wolfe MD. Approver2 : Report Date : 10/26/2016 12:15:36. My Comment : . PROCEDURE: Radiographs of the Right Shoulder. HISTORY: pain/nimbness in the right arm. COMPARISON: No prior. FINDINGS: BONES: Normal. No fracture. JOINTS: Normal. Glenohumeral and acromioclavicular joints preserved. No osteoarthritis. SOFT TISSUES: Normal. OTHER FINDINGS: None. IMPRESSION: Normal radiographs of the right shoulder. Progress Note: Plan: X-Ray C Spine. X-Ray R Shoulder. Reassess and Dispo. patient was dc home with PMD and neuro follow up. Progress: Patient found to have elevated blood pressure, but denies any history or medication use. Disposition - Disposition Referrals: Ambrose Gaspar MD [Staff Provider] - Disposition: HOME/ ROUTINE Disposition Time: 14:04 Condition: STABLE Additional Instructions: Follow up with your PMD and Neurologist within 1-2 days. Return to ED if feel worse. Prescriptions: Ibuprofen [Motrin Tab] 600 mg PO Q8 #30 tab Gabapentin [Neurontin] 300 mg PO DAILY #60 capsule Lisinopril [Zestril] 10 mg PO DAILY #30 tab Instructions: Cervical Radiculopathy (ED) Forms: Work Excuse - Clinical Impression Clinical Impression: Cervical radiculopathy - Scribe Statement The provider has reviewed the documentation as recorded by the Sharla Khan All medical record entries made by the Scribregi were at my direction and personally dictated by me. I have reviewed the chart and agree that the record accurately reflects my personal performance of the history, physical exam, medical decision making, and the department course for this patient. I have also personally directed, reviewed, and agree with the discharge instructions and disposition.
--- NOTE | 2016-10-26 12:24 | RAD ---
PROCEDURE: Radiographs of the Right Shoulder HISTORY: pain/nimbness in the right arm COMPARISON: No prior. FINDINGS: BONES: Normal. No fracture. JOINTS: Normal. Glenohumeral and acromioclavicular joints preserved. No osteoarthritis. SOFT TISSUES: Normal. OTHER FINDINGS: None. IMPRESSION: Normal radiographs of the right shoulder.
--- NOTE | 2016-10-26 13:59 | RAD ---
PROCEDURE: Cervical Spine Radiographs. HISTORY: Pain. COMPARISON: None. FINDINGS: BONES: The vertebral bodies are maintained in height. The transverse processes and posterior elements appear intact. Evaluation of the odontoid process atlantoaxial articulation is grossly normal though suboptimally evaluated. The odontoid process is intact. DISC SPACES: Disc spaces are preserved in height. Spondylotic changes are noted at C4-5 and C5-6. SOFT TISSUES: Normal. No prevertebral soft tissue swelling. OTHER FINDINGS: None. IMPRESSION: No evidence of fracture or degenerative disc disease.
[2016-10-26 14:30] VITALS: BP 172/90; PULSE 81; RESP 16
[2016-10-26 16:36] VITALS: O2SAT 99
== END 2016-10-26 14:29 | disposition home or self-care (01) ==
LOC: C.ER 09:54
DX: M54.12 Radiculopathy, cervical region (principal)

== ENCOUNTER 2017-07-12 06:33 | Emergency (ER) | payer OTHER ==
[2017-07-12 07:11] VITALS: RESP 20; O2SAT 98
--- NOTE | 2017-07-12 07:32 | C.PDOC ---
History Of Present Illness 42 yo female, hx of asthma, presents with body aches, cough, rhinorrhea x 2 days. subjective fever. no abdominal pain, wheezing, cp, sob, n/v/d. (+)sick contact (-)flu shot Time Seen by Provider: 07/12/17 07:01 Chief Complaint (Nursing): Flu-like Symptoms Past Medical History Reviewed: Historical Data, Nursing Documentation, Vital Signs Vital Signs: Last Vital Signs Temp 99.3 F 07/12/17 09:10 Pulse 99 H 07/12/17 09:10 Resp 20 07/12/17 09:10 BP 151/91 H 07/12/17 09:10 Pulse Ox 98 07/12/17 10:53 - Medical History PMH: Anemia, Asthma, HTN - [facility] Procedures PACKED CELL TRANSFUSION (12/10/12) TRANSFUSE NONAUT RED BLOOD CELLS IN PERIPH VEIN, PERC (09/19/16) Family History: States: Unknown Family Hx, [place] (Mother had [place] in her 40's) - Social History Hx Tobacco Use: No Hx Alcohol Use: No Hx Substance Use: No - Immunization History Hx Tetanus Toxoid Vaccination: Yes Hx Influenza Vaccination: Yes Hx Pneumococcal Vaccination: No Review Of Systems Constitutional: Positive for: Fever, Other (bodyaches) Respiratory: Positive for: Cough Physical Exam - Physical Exam Appears: Well, No Acute Distress Skin: Normal Color, Warm, Dry Eye(s): bilateral: Normal Inspection, PERRL, EOMI Nose: Normal Throat: Normal Neck: Normal Cardiovascular: Rhythm Regular Respiratory: Normal Breath Sounds, No Wheezing Gastrointestinal/Abdominal: Normal Exam Back: Normal Inspection Extremity: Normal ROM ED Course And Treatment O2 Sat by Pulse Oximetry: 98 Medical Decision Making Medical Decision Making: suspect flu vs strep vs viral syndrome - pt flu positive. treated. vital stable. stable for outpt mangemnt Disposition - Disposition Referrals: [facility] [Outside] [facility] [Outside] Disposition: HOME/ ROUTINE Disposition Time: 10:00 Condition: STABLE Additional Instructions: please follow up with your doctor/clinic. return to er with worsening symptoms or concerns. Prescriptions: Oseltamivir Phosphate [Tamiflu] 75 mg PO BID #10 capsule Instructions: Influenza (ED) Forms: DoYouRemember (French) - Clinical Impression Clinical Impression: Influenza
--- NOTE | 2017-07-12 08:25 | RAD ---
HISTORY: cough COMPARISON: Chest x-ray performed 09/19/16 TECHNIQUE: Chest PA and lateral FINDINGS: LUNGS: No focal consolidation. Please note that chest x-ray has limited sensitivity for the detection of pulmonary masses. PLEURA: No significant pleural effusion identified. No definite pneumothorax . CARDIOVASCULAR: The cardiomediastinal silhouette appears within normal limits of size. OSSEOUS STRUCTURES: No acute osseous abnormality identified. VISUALIZED UPPER ABDOMEN: Unremarkable. OTHER FINDINGS: None. IMPRESSION: No focal consolidation, significant pleural effusion, or definite pneumothorax identified.
[2017-07-12 08:28] LABS: INFLUENZA A B POS FOR INFLUENZA B (NEGATIVE)
[2017-07-12 09:11] VITALS: BP 151/91; PULSE 99; TEMP 99.3
== END 2017-07-12 09:41 | disposition home or self-care (01) ==
LOC: C.ER 06:33
DX: J11.1 Influenza due to unidentified influenza virus with other respiratory manifestations (principal); I10 Essential (primary) hypertension